=== PATIENT | female | born 1950 | race Caucasian/White ===

== ENCOUNTER → 2022-09-24 | Outpatient (REF) | payer MEDICARE ==
[2022-09-24 13:49] LABS: BASO % 0.3 % (0.0-1.0); EOS # 0.1 10^3/uL (0.0-0.5); EOS % 0.9 % (0.0-3.0); HEMOGLOBIN 10.4 g/dl (12.0-15.5); LYMPH # 0.6 10^3/uL (1.5-5.0); LYMPH % 5.7 % (24.0-44.0); MEAN CORPUSCULAR HEMOGLOBIN 24.1 pg (27.0-33.0); MEAN CORPUSCULAR HGB CONC 28.9 g/dl (32.0-36.5); MEAN CORPUSCULAR VOLUME 83.3 fl (80.0-96.0); MONO # 0.3 10^3/uL (0.0-0.8); MONO % 2.9 % (2.0-8.0); NEUTROPHILS # 9.5 10^3/uL (1.5-8.5); NEUTROPHILS % 89.7 % (36.0-66.0); PLATELET COUNT, AUTOMATED 385 10^3/uL (150-450); RED BLOOD COUNT 4.32 10^6/uL (4.00-5.40); WHITE BLOOD COUNT 10.6 10^3/uL (4.0-10.0)
[2022-09-24 14:06] LABS: ERYTHROCYTE SEDIMENTATION RATE 93 mm/hr (0-30)
[2022-09-24 14:07] LABS: APPEARANCE, URINE MANUAL CLOUDY (CLEAR); BILIRUBIN, URINE MANUAL NEGATIVE (NEGATIVE); COLOR, URINE MANUAL YELLOW (YELLOW); GLUCOSE, URINE (UA) MANUAL NEGATIVE (NEGATIVE); KETONE, URINE MANUAL NEGATIVE (NEGATIVE); LEUKOCYTE ESTERASE, URINE MAN POSITIVE (NEGATIVE); NITRITE, URINE MANUAL POSITIVE (NEGATIVE); SPECIFIC GRAVITY,URINE MANUAL 1.015 (1.002-1.035); UROBILINOGEN, URINE MANUAL NORMAL (NORMAL)
[2022-09-24 14:08] LABS: BLOOD URINE MANUAL TRACE (NEGATIVE); PROTEIN, URINE MANUAL TRACE mg/dL (NEGATIVE); TOTAL PROTEIN,RANDOM URINE 17.6 MG/DL (0.0-14.0); URIC ACID 6.2 MG/DL (3.1-7.8)
[2022-09-24 14:12] LABS: CALCIUM LEVEL 9.1 MG/DL (8.3-10.6); CREATININE FOR GFR 1.14 MG/DL (0.55-1.30); GLOMERULAR FILTRATION RATE 49.7 (>39); POTASSIUM SERUM 4.3 MMOL/L (3.5-5.1)
[2022-09-24 14:14] LABS: WBC, URINE TNTC /hpf (0-3)
[2022-09-24 14:15] LABS: BACTERIA, URINE LARGE AMOUNT; C REACTIVE PROTEIN QUANTITATIV 5.8 MG/DL (<1.0); HYALINE CAST, URINE NONE SEEN /lpf (0-1); MUCUS, URINE SMALL AMOUNT (NEGATIVE); RBC, URINE 0-1 /hpf (0-3); SQUAMOUS EPITHELIAL CELL URINE MOD AMOUNT /hpf (SMALL AMT)
[2022-09-24 14:17] LABS: COMPLEMENT C3 170.9 MG/DL (90.0-170.0); COMPLEMENT C4 34.2 MG/DL (12-36)
[2022-10-01 12:00] LABS: DRVV SCREEN 44.7 SEC
[2022-10-01 12:08] LABS: PTT LUPUS TYPE ANTICOAG SCREEN 1.2 (0-1.2)
[2022-10-01 12:15] LABS: DRVV CONFIRM 38.5 SEC
[2022-10-01 12:16] LABS: NORMALIZED RATIO 1.2 (0.00-1.20)
[2022-10-04 14:07] LABS: HEXAGONAL PHASE PHOSPHOLIPID 6 sec (0-11)
== END ==
LOC: M SFHCRHEU 11:02
PROVIDERS: ATTEND Internal Medicine
DX: R76.8 Other specified abnormal immunological findings in serum (principal); M10.9 Gout, unspecified; M79.10 Myalgia, unspecified site

== ENCOUNTER → 2022-11-26 | Outpatient (REF) | payer MEDICARE ==
[2022-11-26 17:01] LABS: URIC ACID 6.1 MG/DL (3.1-7.8)
[2022-11-26 17:04] LABS: CALCIUM LEVEL 9.2 MG/DL (8.3-10.6); CREATININE FOR GFR 1.1 MG/DL (0.55-1.30); GLOMERULAR FILTRATION RATE 51.8 (>39); POTASSIUM SERUM 4.6 MMOL/L (3.5-5.1)
== END ==
LOC: M SFHCRHEU 13:56
PROVIDERS: ATTEND Internal Medicine
DX: M10.9 Gout, unspecified (principal)